=== PATIENT | female | born 1995 | race Caucasian/White ===

== ENCOUNTER 2018-01-05 18:41 | Emergency (ER) | payer BC, OTHER ==
--- NOTE | 2018-01-05 20:18 | ED Physician Documentation ---
PD HPI HEENT - Stated complaint Stated Complaint: swollen lympth nodes-sore throat - Chief complaint Chief Complaint: General - History obtained from History obtained from: Patient - History of Present Illness Timing - onset: How many weeks ago (1) Timing - details: Abrupt onset Pain level now: 4 Location: Throat Worsens: Swalllowing Associated symptoms: Swollen nodes. No: Fever Recently seen: Not recently seen Review of Systems Constitutional: denies: Fever Ears: denies: Ear pain Throat: reports: Sore throat Cardiac: reports: Reviewed and negative Respiratory: reports: Reviewed and negative GI: reports: Reviewed and negative PD PAST MEDICAL HISTORY - Past Medical History Cardiovascular: None Respiratory: None Neuro: Fainting Endocrine/Autoimmune: None GI: None : None HEENT: None Psych: None Musculoskeletal: None Derm: None - Past Surgical History Past Surgical History: Yes Ortho: Other HEENT: Tonsil/Adenoidectomy - Present Medications Home Medications: Ambulatory Orders Medication Instructions Recorded Confirmed Norgestimate-Ethinyl Estradiol 1 tab PO DAILY 02/22/15 01/05/18 [Ortho Tri-Cyclen 28 Tablet] Azithromycin [Zithromax] 250 mg PO DAILY #4 tablet 01/05/18 oxyCODONE/ACET 5/325 [Percocet 5 1 - 2 each PO Q6H PRN #14 tablet 01/05/18 mg/325 mg] - Allergies Allergies/Adverse Reactions: Allergies Allergy/AdvReac Type Severity Reaction Status Date / Time Penicillins Allergy Rash Verified 01/05/18 18:46 - Social History Does the pt smoke?: No Smoking Status: Never smoker Does the pt drink ETOH?: No Does the pt have substance abuse?: No - Immunizations Immunizations are current?: Yes - POLST Patient has POLST: No PD ED PE NORMAL - Vitals Vital signs reviewed: Yes - General General: Alert and oriented X 3, No acute distress, Well developed/nourished - Neck Neck: Supple, no meningeal sign - Respiratory Respiratory: No respiratory distress, Clear bilaterally PD ED PE EXPANDED - HEENT HEENT: Pharyngeal erythema, Swollen tonsils Results - Vitals Vitals: Oxygen O2 Source Room air - Labs Labs: Laboratory Tests 01/05/18 18:48 Group A Strep Rapid POSITIVE H PD MEDICAL DECISION MAKING - ED course Complexity details: considered differential, d/w patient Departure - Departure Disposition: 01 Home, Self Care Clinical Impression: Strep pharyngitis Condition: Good Instructions: ED Strep Pharyngitis Conf Follow-Up: Betty Claudio MD [Primary Care Provider] - Prescriptions: Azithromycin [Zithromax] 250 mg PO DAILY #4 tablet oxyCODONE/ACET 5/325 [Percocet 5 mg/325 mg] 1 - 2 each PO Q6H PRN #14 tablet PRN Reason: Pain Discharge Date/Time: 01/05/18 21:57
[2018-01-05] MEDS ORDERED: AZITHROMYCIN 250 MG TABLET PO STA (20:27)
[2018-01-05] MEDS ORDERED: oxyCOD/ACETAMIN 5 MG/325 MG TABLET PO STA (20:27)
[2018-01-05] MEDS ORDERED: DEXAMETHASONE 10 MG/ML VIAL PO STA (20:27)
[2018-01-05] MEDS ORDERED: CHERRY SYRUP 10 ML UDC PO ONE (20:43)
[2018-01-05] MEDS ORDERED: oxyCODONE/ACET 5/325 Prepack 4 PO STA (21:41)
[2018-01-05 21:49] VITALS: BP 144/82
== END 2018-01-05 21:57 | disposition home or self-care (01) ==
LOC: ED 18:41
DX: J02.0 Streptococcal pharyngitis (principal)
CPT/HCPCS: 87430; 99283; A9270